=== PATIENT | female | born 1995 | race Caucasian/White ===

== ENCOUNTER 2021-09-25 16:35 | Inpatient (IN) | payer BC, OTHER ==
[~2021-09-25] VITALS: Ht 157.5 cm; Wt 94.8 kg
[~2021-09-25 16:35] MED LIST: COLACE100 MG PO; IBUPROFEN600 MG PO; PEPCID20 MG PO; PRENATAL VITAM1 EAC8 PO; PRILOSEC OTC20 MG PO
[2021-09-25] MEDS ORDERED: PRENATAL VITAM1 EAC6 PO (17:58)
[2021-09-25 17:59] LABS: HEMOGLOBIN 10.6 gm/dl (12.3-15.3); RED BLOOD COUNT 3.63 M/UL (4.00-5.10); WHITE BLOOD COUNT 10.1 K/UL (4.5-11.0)
[2021-09-26] MEDS ORDERED: HEMOCYTE324 MG PO (14:37)
[2021-09-26] MEDS ORDERED: COLACE100 MG PO (14:37)
[2021-09-26] MEDS ORDERED: IBUPROFEN800 MG PO (14:37)
[2021-09-27 03:16] LABS: HEMOGLOBIN 11.3 gm/dl (12.3-15.3)
== END 2021-09-27 16:55 | disposition home or self-care (01) | DRG 807 ==
LOC: GENOP 16:35 → OB 17:02
PROVIDERS: Obstetrics & Gynecology; ADMIT Obstetrics & Gynecology
PROC: 4A1HXCZ Monitoring of Products of Conception, Cardiac Rate, External Approach (ICD-10-PCS; 2021-09-25)
PROC: 10E0XZZ Delivery of Products of Conception, External Approach (ICD-10-PCS; principal; 2021-09-26)
PROC: 3E033VJ Introduction of Other Hormone into Peripheral Vein, Percutaneous Approach (ICD-10-PCS; 2021-09-26)
PROC: 10907ZC Drainage of Amniotic Fluid, Therapeutic from Products of Conception, Via Natural or Artificial Opening (ICD-10-PCS; 2021-09-26)
PROC: 3E0234Z Introduction of Serum, Toxoid and Vaccine into Muscle, Percutaneous Approach (ICD-10-PCS; 2021-09-26)
DX: O99.824 Streptococcus B carrier state complicating childbirth (principal); Z37.0 Single live birth; Z20.822 Contact with and (suspected) exposure to COVID-19; Z3A.37 37 weeks gestation of pregnancy; Z28.310 Unvaccinated for COVID-19; Z23 Encounter for immunization
CPT/HCPCS: 36415; 81001; 85014; 85018; 85025; 90715; J0696; J2540; J2590; J7070; J7120

== ENCOUNTER → 2022-01-07 | Outpatient (CLI) | payer BC, OTHER ==
[~2022-01-07] MED LIST changes: +HEMOCYTE324 MG PO; +IBUPROFEN800 MG PO; +MIRALAX 119 GR119 GM PO; +PRENATAL VITAM1 EAC6 PO
[2022-01-07 10:26] LABS: HEMOGLOBIN 13.5 gm/dl (12.3-15.3); RED BLOOD COUNT 4.52 M/UL (4.00-5.10); WHITE BLOOD COUNT 9.6 K/UL (4.5-11.0)
== END ==
LOC: OPSV2 09:00
PROVIDERS: Obstetrics & Gynecology
DX: Z01.812 Encounter for preprocedural laboratory examination (principal); N81.9 Female genital prolapse, unspecified
CPT/HCPCS: 36415; 81001; 85025

== ENCOUNTER → 2022-01-13 | Day surgery (SDC) | payer BC, OTHER | END | disposition home or self-care (01) | LOC: OR 05:39 → EDSTATUS 07:30 → OR 07:30 | DX: N81.9 Female genital prolapse, unspecified (principal); K59.00 Constipation, unspecified; F41.9 Anxiety disorder, unspecified; J45.909 Unspecified asthma, uncomplicated; F32.A Depression, unspecified; Z53.8 Procedure and treatment not carried out for other reasons | CPT/HCPCS: 36415; 84703 ==

== ENCOUNTER → 2022-02-05 | Outpatient (CLI) | payer BC, OTHER ==
[2022-02-05 10:36] LABS: HEMOGLOBIN 13.8 gm/dl (12.3-15.3); RED BLOOD COUNT 4.54 M/UL (4.00-5.10); WHITE BLOOD COUNT 11.2 K/UL (4.5-11.0)
== END ==
LOC: OPSV2 09:00
PROVIDERS: Obstetrics & Gynecology
DX: Z01.812 Encounter for preprocedural laboratory examination (principal)
CPT/HCPCS: 81001; 85025

== ENCOUNTER → 2022-02-19 | Day surgery (SDC) | payer BC, OTHER ==
[~2022-02-19] MED LIST changes: +DOCUSATE SODIU250 MG PO; +DULCOLAX STOOL100 MG PO; +HYDROCODONE-AC1 EACH PO
== END | disposition home or self-care (01) ==
LOC: OR 06:17
DX: N81.3 Complete uterovaginal prolapse (principal); N72 Inflammatory disease of cervix uteri; N88.8 Other specified noninflammatory disorders of cervix uteri; R19.8 Other specified symptoms and signs involving the digestive system and abdomen; K42.9 Umbilical hernia without obstruction or gangrene; Z79.899 Other long term (current) drug therapy
CPT/HCPCS: 84703; C1769; J0690; J1100; J1170; J1885; J2001; J2250; J2405; J2550; J2704; J3010; J7040